=== PATIENT | female | born 1960 | race Caucasian/White ===

== ENCOUNTER 2016-11-19 22:00 | Inpatient (IN) | payer OTHER ==
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
--- NOTE | ~2016-11-19 | DS ---
Unit #: [id number] #: [id number] Patient: YESI WIN [id number] [facility] [address] [place] [address] [id number] I MR#: [id number] NAME: YESI WIN. ROOM: P256 Age: 56 Sex: F Admission Date: 11/20/2016 : 1960 Discharge Date: 11/21/2016 Attending Physician: Neal Conrad M.D. Primary Care Physician: Primary Care Physician No DISCHARGE SUMMARY REASON FOR ADMISSION Yesi is 56-year-old woman well known to me from the admissions from this facility who reported that she has been ejected from her living situation and was suicidal. She was readmitted for stabilization. HOSPITAL COURSE The patient was readmitted and stay on previous medications including lorazepam and Restoril. The patient had an uneventful period of detox although she was typically emotionally labile and demanding of staff. On the date of discharge, she contracted for safety with no further suicidal ideation, intent, or plan. DISCHARGE DIAGNOSES [place] I PTSD, chronic. [place] II Borderline personality disorder. [place] III Chronic pain. High cholesterol. Hypertension. History of aortic aneurysm. History of lupus. [place] IV [place] V INSTRUCTIONS TO PATIENT Follow up with primary care physician and with the [facility]. DISCHARGE MEDICATIONS 1. Seroquel 50 mg three times a day for anxiety and 100 mg at bedtime for insomnia 2. Wellbutrin SR 150 mg twice daily for depression 3. Haldol 10 mg twice daily for mood stability 4. Restoril 15 mg at bedtime for insomnia 5. Ativan 1 mg every four hours as needed for anxiety 6. Neurontin 600 mg four times a day for anxiety 7. Cogentin 2 mg at bedtime for EPS Other medications per primary care physician. CONDITION AT DISCHARGE Improved. Unit #: [id number] #: [id number] Patient: YESI WIN PROGNOSIS Good. DIET AND ACTIVITY Ad marisel. Dictated by... Jamir EucedaH/baron TD: 11/28/2016 08:35 JOB #: [id number] DISCHARGE SUMMARY Page 1 of 1 X Neal Conrad MD DISCHARGE SUMMARY
--- NOTE | ~2016-11-19 | HP ---
Unit #: [id number] #: [id number] Patient: YESI WIN [id number] [place] [address] [id number] MR#: [id number] NAME: YESI WIN. ROOM: P256 Age: 56 Sex: F Admission Date: 11/20/2016 : 1960 Attending Physician: Neal Conrad M.D. Admitting Physician: Neal Conrad M.D. Primary Care Physician: Primary Care Physician No HISTORY AND PHYSICAL HISTORY OF PRESENT ILLNESS Yesi is a 56 year old admitted to [facility] with depression and verbalizing wanting to hurt herself. PAST MEDICAL HISTORY 1. Coronary artery disease. a. [place] x3. b. Angioplasty with stents. c. Status post 3 vessel CABG, 2010. 2. Peripheral vascular disease. a. Angioplasty with stents. 3. Hepatitis C. a. Cirrhosis. 4. COPD. 5. High blood pressure. 6. PUD. 7. History of lupus. 8. History of AAA. PAST SURGICAL HISTORY 1. As above. 2. Bladder tack. 3. Hysterectomy. 4. Left carpal tunnel release. 5. Left foot and thumb. ALLERGIES Zofran, penicillin, Keflex, aspirin. SOCIAL HISTORY Continues to smoke at least a pack a day. Denies alcohol and illicit drug use. FAMILY HISTORY Medically noncontributory. REVIEW OF SYSTEMS CONSTITUTIONAL: No fever or chills. HEENT: Denies any sore throat, ear pain or runny nose. CARDIOVASCULAR: Denies chest pain, irregular heart rhythm or palpitations. CHEST: Denies shortness of breath or cough. No hemoptysis. GASTROINTESTINAL: Denies nausea, vomiting, diarrhea or chronic constipation. Unit #: [id number] #: [id number] Patient: YESI WIN ENDOCRINE: Denies history of increased thirst or urination. No recent significant weight loss or gain. GENITOURINARY: Denies dysuria, frequency, or hematuria. SKIN: Denies any rashes. HEMATOLOGIC: Denies history of increased bleeding or bruising. MUSCULOSKELETAL: Denies any hot, swollen joints. No generalized muscle pain. NEUROLOGIC: Denies problems with vision or speech. No frequent, severe headaches. No numbness, tingling or weakness in any extremities. Denies loss of bladder or bowel control. CURRENT MEDICATIONS 1. Seroquel 300 mg q.h.s. 2. Lipitor 40 mg daily. 3. Nicotine patch 21 mg daily. 4. Neurontin 600 mg q.i.d. 5. Protonix 40 mg b.i.d. 6. Plavix 75 mg daily. 7. Catapres 0.1 mg daily. 8. Lopressor 50 mg b.i.d. 9. Ferrous gluconate 324 mg daily. 10. Milk of Magnesia p.r.n. 11. Maalox p.r.n. 12. Tylenol p.r.n. PHYSICAL EXAMINATION GENERAL: Alert, well-nourished, in no apparent distress. VITAL SIGNS: Blood pressure 134/82, heart rate 80, respirations 16, temperature 98.6. WEIGHT: 159. HEIGHT: 5 feet 5 inches. SKIN: Warm and dry without rash or lesion. HEENT: Normocephalic. TMs not viewed. Oral and nasal passages clear. Conjunctivae clear. PERRLA. EOMs intact. NECK: Supple without lymphadenopathy or thyromegaly. HEART: Regular rate and rhythm without murmur. LUNGS: Clear. ABDOMEN: Soft, nontender. : Not done. EXTREMITIES: No evidence of cyanosis, clubbing or edema. Moves all without focal deficit. NEUROLOGICAL: Grossly within normal limits. Cranial Nerves: II: Visual jeffers are intact. III, IV AND : Extraocular movements are intact. Pupils are equal, round and reactive to light. V: Facial sensation is grossly normal. VII: Facial movements and expression are normal. VIII: Auditory acuity grossly intact. IX, X: Uvula is midline. Phonation is normal. XI: Patient shrugs shoulders and turns head normally. XII: Tongue protrudes in the midline. Sensory and Motor Function: Sensory and motor sensation is grossly normal. Motor: moves all extremities well. Coordination: Gait is normal. Deep Tendon Reflexes: Intact. IMPRESSION Psychiatric admission. RECOMMENDATIONS PSYCHIATRIC: Per psychiatrist. Unit #: [id number] #: [id number] Patient: YESI WIN MEDICAL: See no contraindications to participate in facility's activities. MEDICAL PROGNOSIS Good. MEDICAL CONDITION Stable. Dictated by... Gwendolyn Kim P.A.-C. for Jamir Vo/amanda TD: 11/20/2016 18:38 JOB #: [id number] HISTORY AND PHYSICAL Page 1 of 1 X Gwendolyn Kim HISTORY AND PHYSICAL
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
[~2016-11-19 22:00] MED LIST: ACETAMINOPHEN PO; ASPIRIN EC81 M1 PO; ASPIRINEC; ATIVAN0.5 M1 PO; BACITRACIN500/UDPK1 TP; CELEXA20 MG PO; CLONIDINE PO; CLOPIDOGREL75 MG PO; HYDROXYZINE HCL50 MG PO; IBUPROFEN600 MG PO; IMDUR-ER60 M3 PO; KLONOPIN2 MG PO; LASIX20 MG PO; LIPITOR40 MG PO; LISINOPRIL; LOPRESSOR PO; LORAZEPAM1 MG PO; METOPROLOL TAR25 MG PO; MYLANTA; NEURONTIN600 MG PO; NICOTINE TRANSD21 MG EXT; NITROGLYCERIN0.4 MG SL; NO MEDICATIONS; PERCOCET 7.5/321 TAB PO; PHENERGAN25 MG PO; PLAVIX; PROTONIX PO; RESTORIL15 MG PO; SEROQUEL PO; SEROQUEL300 MG PO; STELAZINE PO; TEMAZEPAM PO; TOPROL XL; ULTRAM ER100 MG PO; VICODIN PO; [UNRECOGNIZED DRUG - REMARK]
== END 2016-11-21 13:23 | disposition home or self-care (01) | DRG 882 ==
LOC: P1E 11-20 01:28 → P2L 11-20 18:24
DX: F43.12 Post-traumatic stress disorder, chronic (principal); M32.9 Systemic lupus erythematosus, unspecified; K74.60 Unspecified cirrhosis of liver; F60.3 Borderline personality disorder; I71.4 Abdominal aortic aneurysm, without rupture; K25.9 Gastric ulcer, unspecified as acute or chronic, without hemorrhage or perforation; B19.20 Unspecified viral hepatitis C without hepatic coma; J44.9 Chronic obstructive pulmonary disease, unspecified; I10 Essential (primary) hypertension; K27.9 Peptic ulcer, site unspecified, unspecified as acute or chronic, without hemorrhage or perforation; G89.29 Other chronic pain
CPT/HCPCS: J1200; J1630